=== PATIENT | female | born 1950 | race Caucasian/White ===

== ENCOUNTER 2020-11-09 10:26 | Emergency (ER) | payer MEDICARE, MEDICAID, SELFPAY ==
[2020-11-09 10:37] VITALS: BP 132/39; PULSE 61; RESP 16; TEMP 36.6; O2SAT 98; BMI 25.5
--- NOTE | 2020-11-09 11:09 | ED_ITS ---
HPI - Wound/Laceration General Chief Complaint: Wound/Laceration <Carlos Childs MD - Last Filed: 12/08/20 12:41> Stated Complaint: lt foot laceration <Carlos Childs MD - Last Filed: 12/08/20 12:41> Time Seen by Provider: 11/09/20 11:09 <Carlos Childs MD - Last Filed: 12/08/20 12:41> History of Present Illness HPI narrative: Patient complains of redness and discoloration to left foot as well as a wound to the top of the foot which is been there for some time, denies fever or chills, patient is diabetic so does not have any significant pain in the foot and has chronic decreased sensation in the foot, denies any weakness <ARTEM Rico - Last Filed: 11/13/20 14:10> Related Data Home Medications: Previous Rx's Medication Instructions Recorded cephalexin 500 mg PO QID 7 Days #28 tab 11/09/20 <Carlos Childs MD - Last Filed: 12/08/20 12:41> Allergies/Adverse Reactions: Allergies Allergy/AdvReac Type Severity Reaction Status Date / Time [id number] Reductase Allergy Rash Verified 11/09/20 10:37 Inhibitor <Carlos Childs MD - Last Filed: 12/08/20 12:41> Review of Systems Review of Systems: complaining of discoloration and wound to left foot Negatives are no fever no chills no dizziness no weakness no joint pains no other rash <ARTEM Rico - Last Filed: 11/13/20 14:10> Yes all other systems are reviewed and are negative <ARTEM Rico - Last Filed: 11/13/20 14:10> [facility] Past Medical History Source: nursing notes reviewed <ARTEM Rico - Last Filed: 11/13/20 14:10> Medical History: Medical History (Updated 11/10/20 @ 00:01 by Yeison Howe) Diabetes High cholesterol HTN (hypertension) <Carlos Childs MD - Last Filed: 12/08/20 12:41> Physical Exam Vital Signs: Vital Signs: Last Vital Signs Temp 97.8 F 11/09/20 10:37 Pulse 61 11/09/20 10:37 Resp 16 11/09/20 10:37 BP 132/39 L 11/09/20 10:37 Pulse Ox 98 11/09/20 10:37 Body Mass Index 25.5 <Carlos Childs MD - Last Filed: 12/08/20 12:41> Vital Signs: Last Vital Signs Temp 97.8 F 11/09/20 10:37 Pulse 61 11/09/20 10:37 Resp 16 11/09/20 10:37 BP 132/39 L 11/09/20 10:37 Pulse Ox 98 11/09/20 10:37 Body Mass Index 25.5 <ARTEM Rico - Last Filed: 11/13/20 14:10> General appearance no acute distress cooperative Head is normocephalic atraumatic Neck is supple Respiratory No distress Extremities the left foot the dorsum of the foot there is a quarter shaped scabbed wound without discharge The dorsum of the foot has a reddish dusky appearance, it is warm to the touch, there is no swelling there is no discharge there is no lymphangitis there is no joint swelling the joint of the ankle and the toes are fully mobile Other extremities normal Neuro no gross motor deficit <ARTEM Rico - Last Filed: 11/13/20 14:10> Course Course Course Narrative: I agree with the history. My physical is warm foot with dusky color mostly erythema, able to doppler DP and PT. will treat for cellulitis, there is a FB to bottom of foot will Have PA remove FB. This needs close follow up <Carlos Childs MD - Last Filed: 12/08/20 12:41> diabetic patient who noted a small wound developing on the top of left foot and now has noted spreading redness to the foot at Doppler showing symmetric reduced pulses in both feet, the left foot in the area of redness is warm, there is no pain in the foot, it is not cold, unlikely that this is an ischemic foot x-ray did not reveal any evidence of gas or osteomyelitis A small black spot was noted possibly a splinter I was going to remove it and when I cleansed the foot vigorously with gauze pad the small black speck came off, there was no wound beneath it and there was no swelling, no obvious foreign body <ARTEM Rico - Last Filed: 11/13/20 14:10> Discharge Plan Discharge Clinical Impression: Cellulitis <Carlos Childs MD - Last Filed: 12/08/20 12:41> Patient Disposition: Home, Self-Care <Carlos Childs MD - Last Filed: 12/08/20 12:41> Additional Instructions: We started Keflex antibiotic for foot infection Return to the ER in 2 days for wound check Return immediately any time for spreading redness beyond the marked line, increased swelling, pain, fever, any worse condition or any concerns fine for follow-up on the wound on the top of the left foot contact the wound clinic [phone] <Carlos Childs MD - Last Filed: 12/08/20 12:41> Prescriptions: New cephalexin 500 mg tablet 500 mg PO QID 7 Days Qty: 28 RF: 0 <Carlos Childs MD - Last Filed: 12/08/20 12:41> Referrals: Camila Lynn PA [Physician Behavioral Health Technician] - 2 days <Carlos Childs MD - Last Filed: 12/08/20 12:41> Interventions: ED Discharge Assessment Last Done: 11/09/20 12:41 <Carlos Chilsd MD - Last Filed: 12/08/20 12:41> Discharge Date/Time: 11/09/20 12:42 <Carlos Childs MD - Last Filed: 12/08/20 12:41>
[2020-11-09] MEDS: cephALEXin 500 MG CAPSULE PO (11:26)
[2020-11-09] MEDS: Lidocaine HCl 1 % MPF 5 ML VIAL SUBCUT (11:26)
== END 2020-11-09 12:42 | disposition home or self-care (01) ==
PROVIDERS: Emergency Provider Emergency Medicine; PCP Internal Medicine
DX: L03.116 Cellulitis of left lower limb (principal)
CPT/HCPCS: 99283

== ENCOUNTER 2021-03-25 18:00 | Emergency (ER) | payer MEDICARE, MEDICAID, SELFPAY ==
[2021-03-25 18:02] VITALS: BP 117/58; PULSE 71; RESP 18; TEMP 36.2; O2SAT 98; BMI 24.3
--- NOTE | 2021-03-25 21:39 | ED.EXTPRO ---
HPI - Extremity Problem General Chief complaint: Extremity Problem Stated complaint: Bleeding at Amputation site LBP etc Time Seen by Provider: 03/25/21 21:39 Source: family Mode of arrival: ambulatory Limitations: no limitations History of Present Illness HPI Narrative: 3 toes amputated with slight bleeding. In addition patient has not been eating and is swelling. Patient with peritoneal dialysis but has not been getting great results. she is swelling because her peritoneal dialysis is not working well. Patient to see her rehab technician on Saturday. Complaint: other (bleeding) Onset (ago): day(s) Location: left and lower extremity Relieving factors: nothing Exacerbating factors: nothing Associated symptoms: other (not eating, swelling) Related Data Previous Rx's Medication Instructions Recorded cephalexin 500 mg tablet 500 mg PO QID 7 Days #28 tab 11/09/20 Allergies Allergy/AdvReac Type Severity Reaction Status Date / Time Xmuxhyf-Ndm-Std Reductase Allergy Rash Verified 11/09/20 10:37 Inhibitor Review of Systems Constitutional: Constitutional: Reports no additional constitutional complaints Eyes: Eyes: Reports no additional eye complaints ENT: Denies dizziness Cardiovascular: Cardiovascular: Reports no additional cardiovascular complaints Respiratory: Respiratory: Reports as per HPI Gastrointestinal: Gastrointestinal: Reports no additional gastrointestinal complaints Genitourinary: Genitourinary: Reports no additional female genitourinary complaints Musculoskeletal: Musculoskeletal: Reports no additional musculoskeletal complaints Integumentary/Breasts: Skin/Breast: Denies rash Neurologic: Reports system reviewed and no additional complaints, except as documented, Denies dizziness and Denies Sensory deficit (Neuro) Psychiatric: Psychiatric: Denies anxiety [facility] Past Medical History Medical History Diabetes High cholesterol HTN (hypertension) Social History Social History Advance Directives: No Physical Exam Vital Signs: Vital Signs: Last Vital Signs Temp 98 F 03/25/21 21:43 Pulse 65 03/25/21 21:43 Resp 18 03/25/21 21:43 BP 170/55 H 03/25/21 21:43 Pulse Ox 98 03/25/21 21:43 Body Mass Index 24.3 Const: Other: female chronically ill looking older than stated age Nutritional Appearance: average body habitus Orientation/consciousness: oriented to person and patient oriented x3 Limitations: no limitations HENMT: Head: Yes normal to inspection Ears: external ears normal General nose exam: Normal external nose present Mouth: Normal oral and palatal mucosa present and oropharynx normal Throat: Yes posterior oropharynx normal Eyes: General: appearance normal, both eyes and all related structures Neck: Other: supple Neck: Yes normal visual inspection Chest: Chest palpation & inspection: normal inspection of the chest Resp: Auscultation: clear to auscultation bilaterally Cardio: Jugular venous distension: no JVD Rate: regular rate Rhythm: regular rhythm Heart sounds: S1 normal heart sound present and S2 normal heart sound present GI: Inspection: Yes normal to inspection Palpation (GI): Soft to palpation, nontender and No hepatosplenomegaly present Auscultation: normal bowel sounds : General: Yes no CVA tenderness Back/Spine/Pelvis: Back: no CVA tenderness Skin: Other: well healing amputation wound with lymph drainage. In addition patient with blisters secondary to edema. No evidence of infection Neuro: General: oriented to person and patient oriented x3 Cranial nerves: Yes CN's II-XII intact bilaterally Motor exam (neuro): 5/5 motor strength present throughout Sensory Exam: No Sensory deficit (Neuro) Extrem: General: Yes normal to inspection Psych: Appearance: grossly normal Course Reevaluation(s) Reevaluation #1: Patient with chronic renal failure, poor nutritional status with albumin of 2. This is leading to the increased edema and chronic drainage of surgical wound. No infection to the foot. Will dc home and have patient follow up with renal. Needs to be switched from peritoneal dialysis to hemodialysis Time: 23:09 MDM - Extremity (Nontraumatic) Lab Data Result diagrams: 03/25/21 22:13 03/25/21 22:11 Labs: Lab Results 03/25/21 03/25/21 03/25/21 Range/Units 21:44 22:11 22:13 WBC 19.0 H (4.8-10.8) X10*3/uL RBC 2.64 L (4.20-5.50) X10*6/uL Hgb 8.3 L (12.0-16.0) g/dl Hct 24.3 L (37-47) % MCV 92.0 (80-98) fL MCH 31.4 (27.0-33.0) pg MCHC 34.2 (31.0-35.0) g/dl RDW 24.4 H (11.0-16.0) % Plt Count 358 (160-400) X10*3/uL MPV 9.7 (9.4-12.3) fL Immature Gran % (Auto) 1.1 H (0.0-0.4) % Neut % (Auto) 91.0 H (45-73) % Lymph % (Auto) 5.0 L (20-40) % [place] % (Auto) 2.6 (2-11) % Eos % (Auto) 0.2 (0-4) % Baso % (Auto) 0.1 (0-2) % Lymph # (Auto) 1.0 L (1.2-4.9) X10*3/uL [place] # (Auto) 0.5 (0.1-1.2) X10*3/uL Eos # (Auto) 0.0 (0.0-0.4) X10*3/uL Baso # (Auto) 0.0 (0.0-0.2) X10*3/uL Abs Immat Gran (auto) 0.20 H (0.00-0.03) X10*3/uL Absolute Neuts (auto) 17.3 H (2.0-8.3) X10*3/uL Absolute Nucleated RBC 0.000 (0.0-0.012) X10*3/uL Nucleated RBC % (auto) 0.0 (0.0-0.2) /100WBC Smear Tech's Comments VERIFIED Sodium 133 L (135-145) mmol/L Potassium 3.1 L (3.3-5.1) mmol/L Chloride 93 L (96-108) mmol/L Carbon Dioxide 20 L (22-29) mmol/L Anion Gap 23 H (12-20) BUN 62 H (9-16) mg/dL Creatinine 7.20 H* (0.5-1.4) mg/dL Estim Creat Clear Calc 6.0 Estimated GFR 6 POC Glucose 134 H (60-115) mg/dL Random Glucose 143 H (60-115) mg/dL Calcium 7.1 L (8.4-10.2) mg/dL Total Bilirubin 0.3 (0.0-1.0) mg/dL Direct Bilirubin 0.3 (0.0-0.5) mg/dL AST 14 (5-31) U/L ALT < 6 (0-31) U/L Alkaline Phosphatase 210 H (39-117) U/L Total Protein 6.1 L (6.5-8.0) g/dL Albumin 2.0 L (3.5-5.0) g/dL Discharge Plan Discharge Clinical Impression: Lower extremity edema Chronic kidney failure Qualifiers: Chronic kidney disease stage: unspecified stage Qualified Code(s): N18.9 - Chronic kidney disease, unspecified Patient Disposition: Home, Self-Care Instructions: Chronic Kidney Disease (ED), Leg Edema (ED) Prescriptions: No Action cephalexin 500 mg tablet 500 mg PO QID 7 Days Qty: 28 RF: 0 Referrals: James Maurice MD [Primary Care Provider] - 2 days
[2021-03-25 21:43] VITALS: BP 170/55; PULSE 65; RESP 18; TEMP 36.6; O2SAT 98
[2021-03-25 21:48] LABS: Glucose, Whole Blood 134 mg/dL (60-115)
[2021-03-25 22:17] LABS: Basophils Percent Auto 0.1 % (0-2); Eosinophils Percent Auto 0.2 % (0-4); Hematocrit 24.3 % (37-47); Hemoglobin 8.3 g/dl (12.0-16.0); Imm Gran Pct Auto 1.1 % (0.0-0.4); MANUAL DIFF FLAG SCAN; Mean Corpuscular HGB Conc 34.2 g/dl (31.0-35.0); Mean Corpuscular Hemoglobin 31.4 pg (27.0-33.0); Mean Platelet Volume 9.7 fL (9.4-12.3); Monocytes Absolute Auto 0.5 X10*3/uL (0.1-1.2); Monocytes Percent Auto 2.6 % (2-11); Neutrophils Absolute Auto 17.3 X10*3/uL (2.0-8.3); Platelet Count 358 X10*3/uL (160-400); Red Blood Count 2.64 X10*6/uL (4.20-5.50); Red Cell Distribution Width 24.4 % (11.0-16.0); SCAN SMEAR FLAG 1
[2021-03-25 22:47] LABS: Alanine Aminotransferase < 6 U/L (0-31); Alkaline Phosphatase 210 U/L (39-117); Anion Gap 23 (12-20); Aspartate Amino Transferase 14 U/L (5-31); Bilirubin Direct 0.3 mg/dL (0.0-0.5); Bilirubin Total 0.3 mg/dL (0.0-1.0); Blood Urea Nitrogen 62 mg/dL (9-16); Calcium 7.1 mg/dL (8.4-10.2); Carbon Dioxide 20 mmol/L (22-29); Chloride 93 mmol/L (96-108); Estimated Glomerular Filt Rate 6; Glucose Random 143 mg/dL (60-115); Potassium 3.1 mmol/L (3.3-5.1); Sodium 133 mmol/L (135-145); Total Protein 6.1 g/dL (6.5-8.0)
[2021-03-25 22:54] LABS: SLIDE REVIEW VERIFIED
[2021-03-25 23:21] VITALS: BP 177/60; PULSE 69; RESP 16; O2SAT 96
[2021-03-25] MEDS: Acetaminophen 325 MG TABLET 975 MG PO (23:34)
[2021-03-25] MEDS: Potassium Chloride ER 20 MEQ TAB.ER.PRT PO (23:34)
--- NOTE | 2021-03-25 23:35 | PC.NURSE ---
Left foot wound dressed and wrapped. Pt medicated for 8/10 foot pain and low k+
== END 2021-03-25 23:39 | disposition home or self-care (01) ==
PROVIDERS: Emergency Provider Emergency Medicine; PCP Internal Medicine
DX: R60.0 Localized edema (principal); N18.9 Chronic kidney disease, unspecified; Z79.899 Other long term (current) drug therapy
CPT/HCPCS: 36415; 80048; 80076; 82947; 85025; 99283; 99284